=== PATIENT | female | born 2000 | race Two or more races ===

== ENCOUNTER 2022-06-06 12:32 | Emergency (ER) | payer OTHER ==
[~2022-06-06] VITALS: Ht 170.2 cm; Wt 91.0 kg
[2022-06-06 14:20] LABS: Urine Bacteria NONE SEEN /hpf (None Seen); Urine Blood Negative /uL (Negative); Urine Mucus FEW (None Seen); Urine Specific Gravity 1.023 (1.001-1.035); Urine WBC <1 /hpf (0 - 5)
[2022-06-06] MEDS ORDERED: AZIT250T8 PO (16:19)
[2022-06-06 17:00] VITALS: BP 127/73
== END 2022-06-06 17:06 | disposition home or self-care (01) ==
LOC: ER 12:32
DX: J40 Bronchitis, not specified as acute or chronic (principal); Z98.890 Other specified postprocedural states
CPT/HCPCS: 71046; 81001